=== PATIENT | female | born 1955 | race Caucasian/White ===

== ENCOUNTER 2023-11-06 20:49 | Inpatient (IN) | payer OTHER, SELFPAY ==
[2023-11-06] VITALS (16 sets, daily range): BP systolic 82–157; BP diastolic 67–128
[2023-11-06 17:01] LABS: Hematocrit 40.9 % (37.0-47.0); Hemoglobin 14.5 g/dL (12.0-16.0); Mean Corp Hgb Conc. 35.5 g/dL (33.0-37.0); Mean Corpuscular Hgb 29.8 pg (27.0-31.0); Mean Platelet Volume 9.3 fL (7.4-10.4); Platelet Count 302 10^3/uL (130-400); Red Blood Cell Count 4.87 10^6/uL (4.20-5.40); White Blood Cell Count 8.4 10^3/uL (4.8-10.8)
--- NOTE | 2023-11-06 17:01 | ED.GENMED ---
History of Present Illness
General
Chief Complaint: Cough
Source: patient and spouse
Time Seen by Provider: 11/06/23 16:48
Travel History
Have you had any contact with someone who has COVID-19?: No
Do you have any symptoms of coronavirus? Fever > 100 degrees, chills, cough, shortness of breath, sore throat, loss of taste or smell, muscle aches, or headache?: No
History of Present Illness
History of Present Illness:
This patient is a 68-year-old female presents emergency department with a history of coughing up a 'phlegmy clump' of quarter sized bloody discharge. 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 This happened around 4:30 PM tonight and she has not had any further symptoms. She denies associated fever, chills, chest pain or pressure, vomiting, anorexia, nausea, abdominal pain, chest pain, back pain, headache. Patient states she has
felt 'stuffy' for the last few days with an occasional cough today. When asked about dyspnea she is not dyspneic now but did notice that she felt a little dyspneic while climbing stairs today and walking across her garden yesterday.
Past History
Past History
ED Past Medical History: None
ED Past Surgical History: Orthopedic
Social History
Tobacco: Former smoker
Alcohol: Occasional
Personal:
Living: with family
Phy Exam
Physical Exam
Physical Exam:
GENERAL: Alert , in no apparent distress
EYE: pupils equal and reactive
NECK: Supple, no significant adenopathy.
ENT: o/p clr, mmm.
CARDIAC: Regular rate and rhythm .
LUNGS: Clear breath sounds bilaterally, no acute respiratory distress, no wheezes/rales/rhonchi
ABDOMEN: Soft, without focal tenderness, no r/g, no cvat
NEUROLOGICAL: Alert and oriented, no focal neuro deficits
SKIN: Warm and dry, skin intact.
MUSCULOSKELETAL: No edema, well perfused.
PSYCH: Normal and appropriate interaction.
Course
Orders/Labs/Results
Orders:
Orders
11/06/23 Dinner
Regular
At Your Request: Full Participation
Does patient need a safe tray?: No
11/06/23 16:37
EKG [Electrocardiogram (*1)] Urgent
Reason for Study: Shortness of Breath
11/06/23 16:49
Cardiac Monitoring- Treatment ONCE
EKG- Treatment ONCE
Pulse Ox/cont/shift [RESP] Stat
Quantity: 1
11/06/23 16:52
Complete Blood Count/No Diff Urgent
Comprehensive Metabolic Panel Urgent
D-Dimer Urgent
PTT Urgent
Prothrombin Time Urgent
11/06/23 17:20
CT Chest Pe Study Stat
Comment:
Reason For Exam: hemoptysis
11/06/23 17:48
NT-proBNP Urgent
Troponin I Urgent
11/06/23 19:31
Acid Fast Culture & Smear [Acid Fast Culture & Smear] Urgent
JONG Source: Sputum
Specimen Description:
Date Specimen was Collected: 11/07/23
Time Specimen was Collected: 00:17
CefTRIAXone [Rocephin] 1,000 mg IV NOW STA
11/06/23 19:33
Doxycycline [Vibramycin] 100 mg PO NOW STA
11/06/23 19:58
Admit/Transfer Patient As Directed
Co-Sign Provider:
Level of Care: Inpatient admission
Assign to:: Medical/Surgical
Physician / Group: negro
Diagnosis: endobronchial infection
Reason for Hospitalization: endobronchial infection
Expected length of stay greater than two midnights?: Yes
ELOS- Estimated Length of Stay in days: 2
I certify the patient meets the requirements for IP care: Yes
11/06/23 19:59
Code Status As Directed
Resuscitation Status: Full Code
11/06/23 20:03
Sputum Culture [Respiratory Culture/Gram Stain] Urgent
JONG Source: Sputum
Specimen Description:
Date Specimen was Collected: 11/07/23
Time Specimen was Collected: 00:18
11/06/23 22:00
Heparin 5,000 units SC Q12
11/06/23 22:00
PULMONARY CONSULT Routine
Consulting Provider: Rigo Jay
Was physician already notified: Yes
Activity As Directed
Activity Level: As Tolerated
Quantify Hemopytsis As Directed
Vital Signs As Directed
Frequency: Per unit guidelines
DX Deep Vein Thrombosis Video Routine
11/06/23 23:00
Betamethasone Dipropionate [Diprosone 0.05% Cream] See Dose Instructions TOPICAL BID
11/07/23 06:03
Complete Blood Count/With Diff IN AM
Comprehensive Metabolic Panel IN AM
11/07/23 08:00
Doxycycline [Vibramycin] 100 mg PO Q12
Prednisone [Deltasone] 10 mg PO DAILY
glucosamine-chondroitin [Osteo Bi-Flex] 1 tablet PO DAILY
11/07/23 20:00
CefTRIAXone [Rocephin] 1,000 mg IV Q24H
Abnormal Lab Results
11/06/23
16:52
D-Dimer 0.53 H ug/mlFEU
(0.00-0.50)
Glucose 135 H mg/dl
(70-99)
11/06/23 16:52
11/06/23 16:52
Vital Signs
Initial and Last Documented VS:
Initial Vital Signs
Temp Pulse Resp BP Pulse Ox
98.1 F 96 17 157/95 99
11/06/23 16:33 11/06/23 16:33 11/06/23 16:33 11/06/23 16:33 11/06/23 16:33
Last Documented Vital Signs
Temp Pulse Resp BP Pulse Ox
98.2 F 80 18 115/65 96
11/10/23 11:00 11/10/23 11:00 11/10/23 11:00 11/10/23 11:00 11/10/23 11:00
*Critical Care Note
Total Time (30-74mins, 75-104mins- exclusive of procedures): Not Applicable
Update Note
Update Note:
Patient presents to the Emergency Department with reported hemoptysis
Number and Complexity of Problems Addressed at the Encounter
� Chronic conditions affecting care:
� Acute Exacerbation and/or Progression of Chronic Illness:
� Differential Diagnosis includes: But not limited to intraoral bleeding, PE, bronchitis, pneumonia, AVM, etc.
Amount and/or Complexity of Data to be Reviewed and Analyzed
� I performed an independent evaluation of and my interpretation is:
EKG: Read by me, normal sinus rhythm, normal rate, normal axis, no acute ischemia
CT:SEVERE PERIPHERAL ENDOBRONCHIAL INFECTION throughout the upper lobes of both lungs with extensive peripheral tree-in-bud endobronchial opacity (possibly secondary to atypical mycobacterial infection).
2. SEVERE VARICOID BRONCHIECTASIS and CICATRICIAL ATELECTASIS in the RIGHT MIDDLE LOBE which is nearly completely collapsed.
3. SEVERE VARICOID and CYSTIC BRONCHIECTASIS in the inferior segment of the LINGULA.
4. Small hiatal hernia.
Xrays:
Laboratory Studies:generally unremarkable, D dimer elevated sl as expected given ct
Other:
� Review of other/old records reveals:
� Clinical information was obtained by an independent historian: who is bedside
� Prescriptions/Medications Considered but not given:
� Further testing considered but not performed:
Risk of Complications and/or Morbidity or Mortality of Patient Management
� Social determinants of health affecting care:
� Discussion with other providers (PCP, Hospitalists, Consultants, etc):
� Escalation of care including admission/observation vs risk of discharge considered: Case discussed with Dr. Jay from pulmonary, aware of history, physical, CT findings� Recommends sputum retrieval and consideration of
Manuel Lopezy. Case discussed with hospitalist for admission. Patient will produce a sputum here and then we will start antibiotics. She remained stable at this time
ED Attending Note
-
Portions of this chart may have been created with voice recognition software.� Occasional wrong word or��sound alike� substitutions may have occurred due to the inherent limitations of voice recognition software.
Discharge Plan
Departure
Patient Disposition: Admit
Date of Disposition: 11/06/23
Time of Disposition: 19:33
Admit to: Telemetry
Admit to doctor: kesha
Presentation/result/management discussed w/ accepting MD/DO: Hospitalist
Condition: Fair
Discharge Problem:
Bronchiectasis, Atelectasis, Hemoptysis
Interventions
Interventions:
*Risk Screen - Suicide Last Done: 11/06/23 16:55
*General Assessment Last Done: 11/06/23 16:55
*Neglect/Abuse Screening Last Done: 11/06/23 16:55
ED- Fall Risk Assessment Last Done: 11/06/23 16:56
*ED COVID-19 Vaccine History Last Done: 11/06/23 16:36
ED- Pulmonary Assessment Last Done: 11/06/23 16:55
[2023-11-06 17:15] LABS: ALT (SGPT) 25 U/L (0-35); AST (SGOT) 30 U/L (14-36); Albumin 4.7 g/dl (3.5-5.0); Alkaline Phosphatase 124 U/L (38-126); Blood Urea Nitrogen 14 mg/dl (7-17); Calcium 9.4 mg/dl (8.4-10.2); Carbon Dioxide 23 mmol/L (22-30); Chloride 107 mmol/L (98-107); Glucose 135 mg/dl (70-99); Potassium 3.8 mmol/L (3.5-5.1); Sodium 135 mmol/L (135-145); Total Bilirubin 0.4 mg/dl (0.2-1.3); Total Protein 7.9 g/dl (6.3-8.2); eGFR > 60.00
[2023-11-06 17:17] LABS: APTT 29.7 Sec (23.4-35.0); INR 1.06; PT 13.8 Sec (11.4-14.6)
[2023-11-06 17:20] LABS: D-Dimer 0.53 ug/mlFEU (0.00-0.50)
[2023-11-06 18:42] LABS: Troponin I < 0.012 ng/ml
--- NOTE | 2023-11-06 20:02 | HPS.HSE ---
Family Physician
-
Family Physician: Aida Thompson
Chief Complaint
-
hemotypsis
History of Present Illness
68-year-old female no past medical history presenting with hemoptysis. She was feeling well until this morning when she noticed some wheezing and productive cough. In the afternoon she coughed up a few quarter sized amounts of bloody sputum with
clots. She did have some shortness of breath. She did have some difficulty catching her breath. Denies any chest pain or fevers or chills. She is a former smoker.
In the past many years ago she had recurrent bronchitis/pneumonia saw surgical services coordinator at the time who performed CT scan and showed tree-in-bud abnormalities. No further workup or treatment was recommended at that time.
She has never left the country and no exposure to tuberculosis in the past.
She denies alcohol use.
Patient recently had poison edwin rash and started taking prednisone taper which she started this past Saturday. Rash is improved.
Medical History
Past Medical History
Past Medical History: Reports None
Past Surgical History: Reports None
Social History
Tobacco: Former Smoker
Alcohol: None
Drug: None
Family History
Family History: Not pertinent
Allergies / Home Medications
Allergies reflects when Allergies were last updated in [facility].
Home Medications with original date entered in [facility]
Allergy/Medication List:
Allergies
Allergy/AdvReac Type Severity Reaction Status Date / Time
codeine Allergy Unknown Unverified 11/06/23 16:34
NOT.[id number] - Not Allergy Unknown Uncoded 11/06/23 16:34
Converted 38. See Text.
NOT.[id number] - Not Allergy Unknown Uncoded 11/06/23 16:34
Converted 65. See Text.
Home Medications
Hair,Skin and Nails 1 tab PO DAILY 11/06/23
betamethasone, augmented 0.05 % topical cream 1 applic topical BID 11/06/23
glucosamine-chondroitin 250 mg-200 mg tablet (Osteo Bi-Flex) 1 tab PO DAILY 11/06/23
prednisone 10 mg tablet 10 mg PO .TAPER 11/06/23
Review of Systems
-
History Source: Patient
A 12 point ROS was completed and negative except as noted: Yes
Constitutional: Reports No Symptoms
EENT: Reports No Symptoms
Respiratory: Reports See HPI
Cardiac: Reports No Symptoms
Abdomen/GI: Reports No Symptoms
: Reports No Symptoms
Musculoskeletal: Reports No Symptoms
Skin: Reports No Symptoms
Neurological: Reports No Symptoms
Endocrine: Reports No Symptoms
Hematologic/Lymphatic: Reports No Symptoms
Psych: Reports No Symptoms
Physical Exam
Vital Signs
Vital Signs
Temp Pulse Resp BP Pulse Ox
98.1 F 70 20 134/78 96
11/06/23 16:33 11/06/23 19:45 11/06/23 19:45 11/06/23 19:30 11/06/23 19:45
Physical Exam
General: Well Developed, Well Nourished and No Apparent Distress
HEENT: NormoCephalic, Moist mucous membranes and Atraumatic
Respiratory: Clear
Cardiac: S1/S2 and Regular Rhythm; No Murmur or Rub
GI: Soft, Non Tender, Non Distended and Normal Bowel Sounds; No Organomegaly
Rectal: Deferred by Provider
Musculoskeletal: No Clubbing, No Cyanosis and No Edema
Skin: No Rash
Neuro: Nonfocal/grossly intact
Laboratory Results
-
11/06/23 16:52
11/06/23 16:52
Laboratory Results
PT 13.8 Sec (11.4-14.6) 11/06/23 16:52
INR 1.06 11/06/23 16:52
APTT 29.7 Sec (23.4-35.0) 11/06/23 16:52
Total Bilirubin 0.4 mg/dl (0.2-1.3) 11/06/23 16:52
AST 30 U/L (14-36) 11/06/23 16:52
ALT 25 U/L (0-35) 11/06/23 16:52
Alkaline Phosphatase 124 U/L (38-126) 11/06/23 16:52
Troponin I < 0.012 ng/ml 11/06/23 17:48
Data Reviewed
-
Lab Data: Labs Reviewed by me
Old Records: Reviewed
Impression/Plan
-
IMPRESSION:
PLAN:
# Severe endobronchial infection/bronchiectasis possibly atypical mycobacterial infection
-D-dimer 0.5, CT PE shows severe peripheral endobronchial infection throughout upper lobes with extensive peripheral tree-in-bud endobronchial opacity/severe varicoid bronchiectasis cicatricial atelectasis in the right middle lobe which is nearly
completely collapsed/ inferior Segment of the lingula
-Quantify hemoptysis
-Acid-fast culture pending
-Check sputum culture
-Ceftriaxone/doxycycline
-Pulmonology consulted
# Recent poison edwin rash
-Resolved
-Continue topical steroid taper 10 mg for 2 more days
Former smoker
Full code
DVT prophylaxis�heparin
Regular diet
[2023-11-06] MEDS: VIBRAMYCIN 100 MG PO (20:18)
[2023-11-06] MEDS: ROCEPHIN 1000 MG IV (20:18)
[2023-11-07] MEDS: HEPARIN SC (01:08)
[2023-11-07 06:28] LABS: % Basophils 0.4 % (0-2); % Eosinophils 1.1 % (0-6); % Immature Granulocytes 0.4 % (0-0.5); % Monocytes 9.4 % (1.7-9.3); % Neutrophils 45.7 % (42.2-75.2); Absolute Eosinophils 0.1 10^3/uL (0-0.7); Absolute Lymphocytes 4.2 10^3/uL (1.2-3.4); Absolute Monocytes 0.9 10^3/uL (0.1-0.6); Absolute Neutrophils 4.5 10^3/uL (1.4-6.5); Hematocrit 38.3 % (37.0-47.0); Hemoglobin 13.4 g/dL (12.0-16.0); Mean Corpuscular Hgb 29.2 pg (27.0-31.0); Mean Corpuscular Volume 83.4 fL (81.0-99.0); Mean Platelet Volume 9.2 fL (7.4-10.4); Nucleated Red Blood Cells % 0 %; Platelet Count 260 10^3/uL (130-400); Red Blood Cell Count 4.59 10^6/uL (4.20-5.40); White Blood Cell Count 9.9 10^3/uL (4.8-10.8)
[2023-11-07 06:51] LABS: ALT (SGPT) 22 U/L (0-35); AST (SGOT) 27 U/L (14-36); Albumin 4.1 g/dl (3.5-5.0); Alkaline Phosphatase 75 U/L (38-126); Blood Urea Nitrogen 13 mg/dl (7-17); Calcium 9.2 mg/dl (8.4-10.2); Carbon Dioxide 25 mmol/L (22-30); Chloride 105 mmol/L (98-107); Glucose 90 mg/dl (70-99); Potassium 3.8 mmol/L (3.5-5.1); Sodium 135 mmol/L (135-145); Total Bilirubin 0.6 mg/dl (0.2-1.3); Total Protein 6.8 g/dl (6.3-8.2); eGFR > 60.00
--- NOTE | 2023-11-07 08:10 | W.PN.HOSP.TC ---
Today's Communication/Plan
-
Continue antibiotics. Pulmonary evaluation.
Assessment / Plan
Assessment / Plan
Physical exam:
General: Acutely ill. Nontoxic
HEENT: Normocephalic, Atraumatic and Moist Mucous Membranes
Respiratory: Clear to Auscultation; Negative Wheezes, Rales or Rhonchi
Cardiac: Regular Rhythm and S1/S2
GI: Soft, Nontender and Nondistended
Musculoskeletal: No Clubbing, No Cyanosis and No Edema
Neuro: Awake, Alert and Oriented
Psych: Calm
A/P:
# Severe endobronchial infection/bronchiectasis possibly atypical mycobacterial infection
-D-dimer 0.5, CT PE shows severe peripheral endobronchial infection throughout upper lobes with extensive peripheral tree-in-bud endobronchial opacity/severe varicoid bronchiectasis cicatricial atelectasis in the right middle lobe which is nearly
completely collapsed/ inferior Segment of the lingula
-Quantify hemoptysis
-Acid-fast culture pending
-Check sputum culture
-Ceftriaxone/azithromycin (patient does not tolerate doxycycline)
-Pulmonology consulted and pending evaluation
# Recent poison edwin rash
-Resolved
-Continue topical steroid taper 10 mg for 2 more days
Former smoker
Full code
DVT prophylaxis�heparin
Regular diet
Anticipated Discharge: 24 - 48 hours
Subjective/Interval History
-
Date of Service: November 07, 2023
Patient still having hemoptysis although small quantity. Cough with sputum production. Afebrile. No chest pain or shortness of breath.
Objective Data
-
Labs:
Laboratory Results
11/07/23
06:03
WBC 9.9
Hgb 13.4
Hct 38.3
Plt Count 260
Sodium 135
Potassium 3.8
Chloride 105
Carbon Dioxide 25
BUN 13
Creatinine 0.7
Glucose 90
Calcium 9.2
Total Bilirubin 0.6
AST 27
ALT 22
Alkaline Phosphatase 75
Vital Signs:
Vital Signs
Temp Pulse Resp BP Pulse Ox
98.1 F 65 20 127/71 98
11/06/23 16:33 11/06/23 21:15 11/06/23 21:15 11/06/23 21:00 11/06/23 21:15
[2023-11-07 08:30] VITALS: BP 121/73
[2023-11-07] MEDS: DELTASONE 10 MG PO (08:33)
[2023-11-07] MEDS: HEPARIN 5000 UNITS SC ×2 (08:35→21:06)
--- NOTE | 2023-11-07 09:38 | CON.PUL ---
Consultation
Consultation Request
Date/Time Consultation Requested: 11/06/20232199
Date/Time Consultation Performed: 11/07/2023939
Requesting Provider: Dr. Velasquez
Performing Provider: Dr. Vaz
Reason for Consultation: Hemoptysis
Medical History
-
Chief Complaint: Coughing up blood
History of Present Illness:
68-year-old female with no known past medical history presents with coughing up blood. Patient says that she was coughing up quarter size blood clots. Patient afebrile in the ER to 98.1 �F, pulse rate 96, respiratory rate 17, BP 157/95 and
saturating 99% on room air. Labs showed normal INR of 1.06, and insignificant labs otherwise. CT of the chest was performed showing tree-in-bud nodular opacities predominantly in the upper lobes and trina-lateral RLL with extensive bronchiectasis
in the lingula and right middle lobe with volume loss. Respiratory culture was collected with AFB and bacterial culture. Patient given ceftriaxone and doxycycline in the ER and admitted to the hospitalist service. Patient continued on antibiotics
with azithromycin and ceftriaxone. Patient had apparently been recently exposed to poison edwin and was taking prednisone for this, hence 10 mg daily was continued. Pulmonary now consulted for additional management/recommendations.
When I saw the pt she was in bed in [facility]. She has not coughed up blood since early this AM. She began coughing up quarter-sized clotted red blood yesterday while she was driving. It has never happened before. She denies SOB, chest pain, she is
not on blood thinners, she denies GUADARRAMA, abd pain, N/V/f/c. She denies any recent travel, denies have exposure to anyone with TB, she has never been incarcerated, never been to [place] or other TB-endemic country. She says she has a greenhouse at home,
but otherwise is retired. 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 She is a former tobacco smoker, quit in 2019, smoked off and on for about 20 years, smoking
2-3 cigarettes a day, sometimes less. She had covid-19 in 2022. She has a Hx of pneumonia - last episode few years ago.
PMHx: Hx of COVID-19 (March 2023), Hx of pneumonia, former tobacco smoker
PSHx: Tonsillectomy, oophorectomy, wisdom teeth removal, right knee replacement, right shoulder surgery
Past Medical History
Past Medical History: Other (Above as per HPI)
Past Surgical History: Other (Above as per HPI)
Social History
Tobacco: Former Smoker (Quit 2019 - smoked few cigarettes a day off and on for ~20 years)
Alcohol: None
Drug: None
Environmental Exposures: Has a greenhouse at home
Family History
Family History: Reviewed & Not Pertinent
Allergies / Home Medications
Allergies
Allergy/AdvReac Type Severity Reaction Status Date / Time
codeine Allergy Unknown Verified 11/06/23 22:09
doxycycline Allergy Nausea / Verified 11/07/23 08:31
Vomiting
Home Medications
�Medication �Instructions �Recorded �Confirmed �Last Taken �Type
Hair,Skin and Nails 1 tab PO DAILY 11/06/23 11/06/23 3 Days Ago History
~11/03/23
betamethasone, augmented 0.05 % 1 applic topical BID 11/06/23 11/06/23 11/06/23 History
topical cream
glucosamine-chondroitin 250 mg-200 1 tab PO DAILY 11/06/23 11/06/23 3 Days Ago History
mg tablet (Osteo Bi-Flex) ~11/03/23
prednisone 10 mg tablet 10 mg PO .TAPER 11/06/23 11/06/23 11/06/23 History
20 mg
Review of Systems
-
History Source: Patient
All other systems: Negative unless noted
Vitals / Labs / Diagnostic Testing
Vital Signs
Temp Pulse Resp BP Pulse Ox
98 F 70 17 132/72 98
11/07/23 12:14 11/07/23 12:14 11/07/23 08:30 11/07/23 12:14 11/07/23 12:14
Lab Data
11/07/23 06:03
11/07/23 06:03
Laboratory Results
11/06/23
16:52
PT 13.8
INR 1.06
APTT 29.7
Microbiology
11/07/23 00:43 Sputum Gram Stain - Preliminary
Diagnostic Testing:
Physical Exam
-
HEENT: Normocephalic and Anicteric
Cardiovascular: S1/S2 and Peripheral Edema (negative)
Respiratory: Clear, Wheeze (negative), Rales (negative), Rhonchi (negative) and Non-Labored Respirations
GI: Soft, Non Distended, Non Tender and Normal Bowel Sounds
Neurology: Awake and Alert
Skin: Warm and Dry
General: Comfortable and Sweats (negative)
Assessment
-
Assessment: 68-year-old female with no known past medical history presents with coughing up blood. Patient says that she was coughing up quarter size blood clots. Patient afebrile in the ER to 98.1 �F, pulse rate 96, respiratory rate 17, BP 157/95
and saturating 99% on room air. Labs showed normal INR of 1.06, and insignificant labs otherwise. CT of the chest was performed showing tree-in-bud nodular opacities predominantly in the upper lobes and trina-lateral RLL with extensive
bronchiectasis in the lingula and right middle lobe with volume loss. Respiratory culture was collected with AFB and bacterial culture. Patient given ceftriaxone and doxycycline in the ER and admitted to the hospitalist service. Patient continued
on antibiotics with azithromycin and ceftriaxone. Patient had apparently been recently exposed to poison edwin and was taking prednisone for this, hence 10 mg daily was continued. Pulmonary now consulted for additional management/recommendations.
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
Impression:
#Non�life-threatening hemoptysis - likely due to undiagnosed MAC
#Nodular/bronchiectasis in RML/lingular suspicious for MAC lung disease
#Tree-in-bud nodular opacities in b/l upper lobes and trina-lateral RLL, suspicious for CAP
#Contact dermatitis due to poison ewdin (on RUE and RLE) - this is improving
Plan:
- Follow up sputum AFB to assess for NTM; to help aide in diagnosis, I will arrange for bronch with BAL to send off microbiological analysis
- I reviewed the risks and benefits of a bronchoscopy and she has agreed to this procedure. Risks include but are not limited to bleeding, infection, pneumothorax. Benefit is aiding in diagnosis which will lead to treatment and ultimately help
resolve her hemoptysis
- Continue ceftriaxone and azithro, would plan for 7 days rocephin for now and 5 days zithromax
- Would check blood Cx as well and urine antigens for legionella and Strep PNA
- Keep disposable cup at bedside to quantify hemoptysis
- Continue prednisone taper per primary team for recently exposed poison edwin
- Maintain SpO2 >90-94% with supplemental O2 as needed
- Incentive spirometer encouraged
- Replete electrolytes with K>4, Mg>2
- Maintain euglycemia with goal BG >100 and <180
- prn nebulized bronchodilators
- DVT ppx: HSQ
Pulmonary service will continue to follow along.
Total time spent today was 55 minutes for this encounter. Time includes reviewing laboratory test/imaging results, reviewing pertinent medical records, obtaining and reviewing medical history, performing an appropriate exam, ordering medications,
tests and procedures. Time also includes documentation of this encounter, coordinating patient care and communicating with other healthcare professionals. Total time does not include separately billed tests performed on this date of service.
Data:
CTA Chest 11-06-2023:
1. SEVERE PERIPHERAL ENDOBRONCHIAL INFECTION throughout the upper lobes of both lungs with extensive peripheral tree-in-bud endobronchial opacity (possibly secondary to atypical mycobacterial infection).
2. SEVERE VARICOID BRONCHIECTASIS and CICATRICIAL ATELECTASIS in the RIGHT MIDDLE LOBE which is nearly completely collapsed.
3. SEVERE VARICOID and CYSTIC BRONCHIECTASIS in the inferior segment of the LINGULA.
4. Small hiatal hernia.
[2023-11-07] MEDS: ZITHROMAX 500 MG PO (10:51)
[2023-11-07 12:14] VITALS: BP 132/72
[2023-11-07] MEDS: ROCEPHIN 1000 MG IV (21:05)
[2023-11-07] MEDS: STERILE WATER FOR INJECTION 10 ML IV (21:05)
[2023-11-07 21:17] VITALS: BP 135/79; BMI 31.6
--- NOTE | 2023-11-07 22:00 | PTCARENOTE ---
Patient received in bed from ED @ 2114. Patient ambulated from stretcher to bed. Patient offers no complaints at this time. Oriented to room and call cavazos.
[2023-11-07 23:25] VITALS: BP 127/77
[2023-11-08 06:57] LABS: % Basophils 0.2 % (0-2); % Eosinophils 1.3 % (0-6); % Immature Granulocytes 0.5 % (0-0.5); % Lymphocytes 42.5 % (20.5-51.1); % Neutrophils 45.5 % (42.2-75.2); Absolute Eosinophils 0.1 10^3/uL (0-0.7); Absolute Lymphocytes 3.5 10^3/uL (1.2-3.4); Absolute Monocytes 0.8 10^3/uL (0.1-0.6); Absolute Neutrophils 3.7 10^3/uL (1.4-6.5); Hematocrit 39.8 % (37.0-47.0); Hemoglobin 13.8 g/dL (12.0-16.0); Mean Corp Hgb Conc. 34.7 g/dL (33.0-37.0); Mean Corpuscular Hgb 29.4 pg (27.0-31.0); Mean Corpuscular Volume 84.9 fL (81.0-99.0); Mean Platelet Volume 9.1 fL (7.4-10.4); Nucleated Red Blood Cells % 0 %; Platelet Count 242 10^3/uL (130-400); Red Blood Cell Count 4.69 10^6/uL (4.20-5.40); Red Cell Dist. Width 13.2 % (11.5-14.5); White Blood Cell Count 8.2 10^3/uL (4.8-10.8)
[2023-11-08 07:19] LABS: Blood Urea Nitrogen 14 mg/dl (7-17); Calcium 9.3 mg/dl (8.4-10.2); Carbon Dioxide 29 mmol/L (22-30); Chloride 104 mmol/L (98-107); Estimated Creatinine Clearance 66 ml/min; Glucose 92 mg/dl (70-99); Potassium 4.2 mmol/L (3.5-5.1); Sodium 136 mmol/L (135-145); eGFR > 60.00
--- NOTE | 2023-11-08 07:20 | W.PN.HOSP.TC ---
Today's Communication/Plan
-
Bronchoscopy today. IV antibiotics.
Assessment / Plan
Assessment / Plan
Physical exam:
General: Acutely ill. Nontoxic
HEENT: Normocephalic, Atraumatic and Moist Mucous Membranes
Respiratory: Clear to Auscultation; Negative Wheezes, Rales or Rhonchi
Cardiac: Regular Rhythm and S1/S2
GI: Soft, Nontender and Nondistended
Musculoskeletal: No Clubbing, No Cyanosis and No Edema
Neuro: Awake, Alert and Oriented
Psych: Calm
A/P:
# Severe endobronchial infection/bronchiectasis and likely atypical mycobacterial infection (MAC)
-D-dimer 0.5, CT PE shows severe peripheral endobronchial infection throughout upper lobes with extensive peripheral tree-in-bud endobronchial opacity/severe varicoid bronchiectasis cicatricial atelectasis in the right middle lobe which is nearly
completely collapsed/ inferior Segment of the lingula
-Quantify hemoptysis
-Acid-fast culture pending
-Checking sputum culture
-Strep and Legionella negative
-Blood cultures no growth but pending
-Ceftriaxone/azithromycin (patient does not tolerate doxycycline)
-Pulmonology consulted and appreciated their input
-Plan for bronchoscopy today
-PT eval
# Recent poison edwin rash
-Resolved
-Continue topical steroid taper 10 mg finishing today
Former smoker
Full code
DVT prophylaxis�heparin
N.p.o. for procedure and after that can go back to regular diet.
Anticipated Discharge: 24 - 48 hours
Subjective/Interval History
-
Date of Service: November 08, 2023
Patient is coughing less and also no hemoptysis today. Remains afebrile.
Objective Data
-
Labs:
Laboratory Results
11/08/23
06:43
WBC 8.2
Hgb 13.8
Hct 39.8
Plt Count 242
Sodium 136
Potassium 4.2
Chloride 104
Carbon Dioxide 29
BUN 14
Creatinine 0.7
Glucose 92
Calcium 9.3
Vital Signs:
Vital Signs
Temp Pulse Resp BP Pulse Ox
98.2 F 64 18 127/77 98
11/07/23 23:25 11/07/23 23:25 11/07/23 23:25 11/07/23 23:25 11/07/23 23:25
Review of Systems
-
All other systems: Reviewed and negative
[2023-11-08 07:25] VITALS: BP 125/76
--- NOTE | 2023-11-08 09:01 | W.PN.PUL3 ---
Today's Communication / Plan
-
NPO for bronch today - send off AFB to Dx MAC; will also send bacterial Cx, fungus Cx and cell count with differential
Maintain SpO2>90-94%
Up OOB as tolerated
If pt awake and alert post-bronchoscopy and can ambulate without SOB and SpO2 >95% on room air, then she can go home assuming she has no additional complaints
Because she will receive anesthesia today, she will need to be picked up and cannot drive home herself or make any other serious life decisions.
Pulmonary service will continue to follow along while she remains inpatient, and I will arrange for outpatient follow up. Depending on the results of today, she should also see ID post-discharge.
Assessment
-
Assessment: 68-year-old female with no known past medical history presents with coughing up blood. Patient says that she was coughing up quarter size blood clots. Patient afebrile in the ER to 98.1 �F, pulse rate 96, respiratory rate 17, BP 157/95
and saturating 99% on room air. Labs showed normal INR of 1.06, and insignificant labs otherwise. CT of the chest was performed showing tree-in-bud nodular opacities predominantly in the upper lobes and trina-lateral RLL with extensive
bronchiectasis in the lingula and right middle lobe with volume loss. Respiratory culture was collected with AFB and bacterial culture. Patient given ceftriaxone and doxycycline in the ER and admitted to the hospitalist service. Patient continued
on antibiotics with azithromycin and ceftriaxone. Patient had apparently been recently exposed to poison edwin and was taking prednisone for this, hence 10 mg daily was continued. Pulmonary now consulted for additional management/recommendations.
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
Impression:
#Non�life-threatening hemoptysis - likely due to undiagnosed MAC
#Nodular/bronchiectasis in RML/lingular suspicious for MAC lung disease
#Tree-in-bud nodular opacities in b/l upper lobes and trina-lateral RLL, suspicious for CAP
#Contact dermatitis due to poison edwin (on RUE and RLE) - this has markedly improved
Plan:
- Follow up sputum AFB to assess for NTM; to help aide in diagnosis, she is going to undergo bronch with BAL today to send off microbiological analysis --> she is NPO for bronch with BAL today
- I reviewed the risks and benefits of a bronchoscopy and she has agreed to this procedure. Risks include but are not limited to bleeding, infection, pneumothorax. Benefit is aiding in diagnosis which will lead to treatment and ultimately help
resolve her hemoptysis
- Continue ceftriaxone and azithro, would plan for 7 days rocephin for now and 5 days zithromax
- Follow up blood Cx (drawn 11/06); negative urine antigens for legionella and Strep PNA
- Keep disposable cup at bedside to quantify hemoptysis
- s/p prednisone taper per primary team for recently exposed poison edwin
- Maintain SpO2 >90-94% with supplemental O2 as needed
- Incentive spirometer encouraged
- Replete electrolytes with K>4, Mg>2
- Maintain euglycemia with goal BG >100 and <180
- prn nebulized bronchodilators
- DVT ppx: HSQ
Pulmonary service will continue to follow along.
Total time spent today was 35 minutes for this encounter. Time includes reviewing laboratory test/imaging results, reviewing pertinent medical records, obtaining and reviewing medical history, performing an appropriate exam, ordering medications,
tests and procedures. Time also includes documentation of this encounter, coordinating patient care and communicating with other healthcare professionals. Total time does not include separately billed tests performed on this date of service.
Data:
CTA Chest 11-06-2023:
1. SEVERE PERIPHERAL ENDOBRONCHIAL INFECTION throughout the upper lobes of both lungs with extensive peripheral tree-in-bud endobronchial opacity (possibly secondary to atypical mycobacterial infection).
2. SEVERE VARICOID BRONCHIECTASIS and CICATRICIAL ATELECTASIS in the RIGHT MIDDLE LOBE which is nearly completely collapsed.
3. SEVERE VARICOID and CYSTIC BRONCHIECTASIS in the inferior segment of the LINGULA.
4. Small hiatal hernia.
Subjective Data
-
Date of Service:
Date of Service: November 08, 2023
Chief Complaint: Pulmonary Follow Up
Subjective:
Pt seen this AM. Awaiting bronch with BAL today. Sputum AFB from yesterday still showing NGTD. She feels similar to yesterday. No SOB or chest pain. No abd pain, N/V/f/c.
Review of Systems
General: Other (negative unless mentioned above)
Objective Data
Data Reviewed
Vital Signs / I&O / Oxygen:
Vital Signs
Temp Pulse Resp BP Pulse Ox
98.2 F 64 18 125/76 97
11/08/23 07:25 11/08/23 07:25 11/08/23 07:25 11/08/23 07:25 11/08/23 07:25
SaO2 97
Physical Exam
General: Respiratory Distress (negative) and Comfortable
HEENT: Normocephalic and Anicteric
Cardiovascular: S1-S2 and Peripheral Edema (negative)
Respiratory: Clear, Wheeze (negative), Crackles (negative), Rhonchi (negative) and Non-Labored Respirations
GI: Soft, Non Distended, Non Tender and Normal Bowel Sounds
Neurology: AO x 3
Skin: Warm and Dry
Labs/Micro/Reports
Lab Data
11/08/23 06:43
11/08/23 06:43
Microbiology
11/07/23 00:43 Sputum Respiratory Culture - Preliminary
Usual Respiratory Anu
11/07/23 00:43 Sputum Gram Stain - Preliminary
11/07/23 17:56 Urine Legionella Urinary Antigen - Final
Negative for Legionella pneumophila Serogroup 1 antigen.
A negative result does not rule out the possiblity of
Legionella infection due to other serogroups or species of
Legionella. Clinical correlation is recommended.
11/07/23 17:56 Urine Streptococcus pneumoniae Antigen (M - Final
Negative for Streptococcus pneumoniae antigen.
A negative result does not exclude infection with
Streptococcus pneumoniae. Clinical correlation is
recommended.
[2023-11-08] MEDS: ZITHROMAX 500 MG PO (09:45)
[2023-11-08] MEDS: HEPARIN 5000 UNITS SC ×2 (09:45→21:25)
[2023-11-08] MEDS: DELTASONE 10 MG PO (09:45)
[2023-11-08] MEDS: TYLENOL 650 MG PO (12:26)
[2023-11-08 15:54] VITALS: BP 103/61
--- NOTE | 2023-11-08 16:00 | PTCARENOTE ---
[facility] AAOx[facility]. VSS. Pox 100% on RA. at bedside. Will monitor.
[2023-11-08 17:32] LABS: Brochalveolar Lavage Character Turbid (Clear); Brochalveolar Lavage Color Pink; Brochalveolar Lavage Volume 20 ml
[2023-11-08 17:55] LABS: Brochalveolar Lavage WBC 1584000 cells/ml
[2023-11-08 18:03] LABS: BAL Macrophages 5.5 %; BAL Neutrophils 90.5 %
[2023-11-08] MEDS: STERILE WATER FOR INJECTION 10 ML IV (21:27)
[2023-11-08] MEDS: ROCEPHIN 1000 MG IV (21:27)
[2023-11-08] MEDS: FLUSH (NSS) 1 FLUSH IV (21:29)
[2023-11-08 23:12] VITALS: BP 119/63
[2023-11-09 08:07] VITALS: BP 110/65
[2023-11-09 08:32] LABS: Blood Urea Nitrogen 14 mg/dl (7-17); Calcium 9.3 mg/dl (8.4-10.2); Carbon Dioxide 25 mmol/L (22-30); Chloride 103 mmol/L (98-107); Estimated Creatinine Clearance 77 ml/min; Glucose 153 mg/dl (70-99); Potassium 3.9 mmol/L (3.5-5.1); Sodium 134 mmol/L (135-145); eGFR > 60.00
[2023-11-09 08:34] LABS: % Basophils 0.1 % (0-2); % Immature Granulocytes 0.4 % (0-0.5); % Lymphocytes 11.7 % (20.5-51.1); % Monocytes 4.9 % (1.7-9.3); % Neutrophils 82.9 % (42.2-75.2); Absolute Immature Granulocytes 0.1 10^3/uL (0-0.05); Absolute Lymphocytes 1.5 10^3/uL (1.2-3.4); Absolute Monocytes 0.6 10^3/uL (0.1-0.6); Absolute Neutrophils 10.8 10^3/uL (1.4-6.5); Hematocrit 41.1 % (37.0-47.0); Hemoglobin 13.9 g/dL (12.0-16.0); Mean Corp Hgb Conc. 33.8 g/dL (33.0-37.0); Mean Corpuscular Hgb 29.3 pg (27.0-31.0); Mean Corpuscular Volume 86.5 fL (81.0-99.0); Mean Platelet Volume 9.3 fL (7.4-10.4); Nucleated Red Blood Cells % 0 %; Platelet Count 269 10^3/uL (130-400); Red Blood Cell Count 4.75 10^6/uL (4.20-5.40); Red Cell Dist. Width 12.7 % (11.5-14.5)
[2023-11-09] MEDS: HEPARIN 5000 UNITS SC ×2 (09:16→21:27)
[2023-11-09] MEDS: ZITHROMAX 500 MG PO (09:16)
--- NOTE | 2023-11-09 11:39 | W.PN.HOSP.TC ---
Today's Communication/Plan
-
see bold
Assessment / Plan
Assessment / Plan
Gen: NAD, AAOx3.
Eyes: EOMI, PERRLA, no scleral icterus.
Neck: supple.
CV: RRR, +S1/S2, no m/r/g.
Resp: CTAB, no rales, wheezes, or rhonchi.
Abd: +BS, soft, NT, ND
Skin: No rashes.
Neuro: CN 2-12 intact, non-focal.
Psych: Normal mood and affect.
11/07/23 00:43 Sputum Respiratory Culture - Final
Usual Respiratory Cassandra
11/07/23 00:43 Sputum Gram Stain - Final
11/08/23 14:33 Bronch Right Middle Lobe Respiratory Culture - Preliminary
Usual Respiratory Cassandra
11/08/23 14:33 Bronch Right Middle Lobe Gram Stain - Preliminary
11/07/23 00:43 Sputum Acid Fast Bacilli Smear - Preliminary
11/07/23 00:43 Sputum Acid Fast Bacilli Culture - Preliminary
11/07/23 17:56 Blood/Venous Blood Culture - Preliminary
No Growth in 24 hours- Final report to follow
11/07/23 17:56 Urine Legionella Urinary Antigen - Final
Negative for Legionella pneumophila Serogroup 1 antigen.
A negative result does not rule out the possiblity of
Legionella infection due to other serogroups or species of
Legionella. Clinical correlation is recommended.
11/07/23 17:56 Urine Streptococcus pneumoniae Antigen (M - Final
Negative for Streptococcus pneumoniae antigen.
A negative result does not exclude infection with
Streptococcus pneumoniae. Clinical correlation is
recommended.
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
-CTA chest: severe peripheral endobronchial infection throughout upper lobes with extensive peripheral tree-in-bud endobronchial opacity/severe varicoid bronchiectasis cicatricial atelectasis in the right middle lobe which is nearly completely
collapsed/ inferior Segment of the lingula
-s/p bronch 11/08/23: Exudate was found in the superior lingular segment of the left upper lobe (B4). Notable, mucopurulent, thick secretions were found in the right middle lobe. Blood was present in the bronchus intermedius. The bleeding site was
not identified. Bronchoalveolar lavage was performed. Therapeutic suctioning was performed.
-Culture data above. Sputum culture usual respiratory cassandra. Urine strep and Legionella antigens negative. Blood culture no growth to date. Follow bronch cultuures/cytology.
-Ceftriaxone/azithromycin (patient does not tolerate doxycycline)
-saturating well on RA
-mild leukocytosis, afebrile
-Pulmonology following
Other problems:
Obesity due to excess calories
Recent poison edwin rash, resolved
Former smoker
FULL/heparin
Anticipated Discharge: Within 24 hours
Subjective/Interval History
-
Date of Service: November 09, 2023
Pt states she feels she can't take a deep breath. Having dry cough (no hemoptysis).
Objective Data
-
Labs:
Laboratory Results
11/09/23
07:58
WBC 13.0 H
Hgb 13.9
Hct 41.1
Plt Count 269
Sodium 134 L
Potassium 3.9
Chloride 103
Carbon Dioxide 25
BUN 14
Creatinine 0.6
Glucose 153 H
Calcium 9.3
Vital Signs:
Vital Signs
Temp Pulse Resp BP Pulse Ox
98.1 F 82 14 110/65 98
11/09/23 08:07 11/09/23 08:07 11/09/23 08:07 11/09/23 08:07 11/09/23 08:07
I&O
11/08/23 11/09/23 11/10/23
06:59 06:59 06:59
Intake Total 360 / 360 240 / 240
Balance 360 / 360 240 / 240
[2023-11-09] MEDS: DIFLUCAN 200 MG PO (12:37)
--- NOTE | 2023-11-09 13:35 | CM ---
CM following re: discharge planning.
Reviewed pt's chart, met with pt.
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
Pt reports she lives with spouse in a ranch style house, 6 steps up, has supportive son. 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 No DME, VN or SNF history.
PCP: Aida rivera
Pharmacy: [facility]
D/C plan: home with anticipated no needs. Spouse to transport at discharge.
CM will follow with discharge plan updates as hospitalization progresses
[2023-11-09 15:02] VITALS: BP 122/68
--- NOTE | 2023-11-09 15:15 | W.PN.PUL3 ---
Today's Communication / Plan
-
Atbs
Dispo
Follow bronch cxs at [facility]
Assessment
-
Assessment: 68-year-old female with no known past medical history presents with coughing up blood. Patient says that she was coughing up quarter size blood clots. Patient afebrile in the ER to 98.1 �F, pulse rate 96, respiratory rate 17, BP 157/95
and saturating 99% on room air. Labs showed normal INR of 1.06, and insignificant labs otherwise. CT of the chest was performed showing tree-in-bud nodular opacities predominantly in the upper lobes and trina-lateral RLL with extensive
bronchiectasis in the lingula and right middle lobe with volume loss. Respiratory culture was collected with AFB and bacterial culture. Patient given ceftriaxone and doxycycline in the ER and admitted to the hospitalist service. Patient continued
on antibiotics with azithromycin and ceftriaxone. Patient had apparently been recently exposed to poison edwin and was taking prednisone for this, hence 10 mg daily was continued. Pulmonary now consulted for additional management/recommendations.
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
Impression:
#Non�life-threatening hemoptysis - likely due to undiagnosed MAC
#Nodular/bronchiectasis in RML/lingular suspicious for MAC lung disease
#Tree-in-bud nodular opacities in b/l upper lobes and trina-lateral RLL, suspicious for CAP
#Contact dermatitis due to poison edwin (on RUE and RLE) - this has markedly improved
Plan:
- Follow bronchoscopy microbiology results
- Continue ceftriaxone and azithro, would plan for 7 days cephalosporin and 5 days po zithromax
- Follow up blood Cx (drawn 11/06); negative urine antigens for legionella and Strep PNA
- Keep disposable cup at bedside to quantify hemoptysis: no hemoptysis since yesterday am
- s/p prednisone taper per primary team for recently exposed poison edwin
- Maintain SpO2 >90-94% with supplemental O2 as needed
- Incentive spirometer encouraged
- Replete electrolytes with K>4, Mg>2
- Maintain euglycemia with goal BG >100 and <180
- prn nebulized bronchodilators
- DVT ppx: HSQ
Disposition: resp rosen stable for d/c today or tomorrow, patient aware, TT Dr Gayle
Patient will follow at [facility]
All above d/w patient in presence of PT
Data:
CTA Chest 11-06-2023:
1. SEVERE PERIPHERAL ENDOBRONCHIAL INFECTION throughout the upper lobes of both lungs with extensive peripheral tree-in-bud endobronchial opacity (possibly secondary to atypical mycobacterial infection).
2. SEVERE VARICOID BRONCHIECTASIS and CICATRICIAL ATELECTASIS in the RIGHT MIDDLE LOBE which is nearly completely collapsed.
3. SEVERE VARICOID and CYSTIC BRONCHIECTASIS in the inferior segment of the LINGULA.
4. Small hiatal hernia.
Subjective Data
-
Date of Service:
Date of Service: November 09, 2023
Chief Complaint: Pulmonary Follow Up
Subjective:
No major events reported overnight
Remains afebrile, respiratory and hemodynamically stable
No more hemoptysis since yesterday morning
Lives with , will like to go home today or tomorrow
Review of Systems
General: Fever (n), Sweats (n), Chills and Satisfactory Appetite
HEENT: Epistaxis (n) and Dysphagia (n)
Cardiopulmonary: Dyspnea, Cough (improved), Sputum Production (trace clear), Wheezing (n) and Hemoptysis (n)
GI: Abdominal Pain (n), Nausea (n) and Vomiting (n)
Neuro: Weakness (n)
Objective Data
Data Reviewed
Vital Signs / I&O / Oxygen:
Vital Signs
Temp Pulse Resp BP Pulse Ox
98.1 F 82 14 110/65 98
11/09/23 08:07 11/09/23 08:07 11/09/23 08:07 11/09/23 08:07 11/09/23 08:07
Intake and Output
11/08/23 11/09/23 11/10/23
06:59 06:59 06:59
Intake Total 360 / 360 240 / 240
Balance 360 / 360 240 / 240
SaO2 98
Physical Exam
General: Comfortable
HEENT: Normocephalic, Anicteric and Moist Mucous Membranes
Cardiovascular: S1-S2, Regular Rhythm, Murmur (n), Peripheral Edema (negative) and Calf Tenderness (n)
Respiratory: Clear, Wheeze (negative), Crackles (negative), Rhonchi (negative), Non-Labored Respirations and Stridor (n)
GI: Soft, Non Distended, Non Tender and Normal Bowel Sounds
Neurology: Awake, AO x 3 and No Motor Deficits
Skin: Warm and Dry
Labs/Micro/Reports
Lab Data
11/09/23 07:58
11/09/23 07:58
Microbiology
11/07/23 00:43 Sputum Respiratory Culture - Final
Usual Respiratory Anu
11/07/23 00:43 Sputum Gram Stain - Final
11/08/23 14:33 Bronch Right Middle Lobe Respiratory Culture - Preliminary
Usual Respiratory Anu
11/08/23 14:33 Bronch Right Middle Lobe Gram Stain - Preliminary
11/07/23 00:43 Sputum Acid Fast Bacilli Smear - Preliminary
11/07/23 00:43 Sputum Acid Fast Bacilli Culture - Preliminary
11/07/23 17:56 Blood/Venous Blood Culture - Preliminary
No Growth in 24 hours- Final report to follow
11/07/23 17:56 Urine Legionella Urinary Antigen - Final
Negative for Legionella pneumophila Serogroup 1 antigen.
A negative result does not rule out the possiblity of
Legionella infection due to other serogroups or species of
Legionella. Clinical correlation is recommended.
11/07/23 17:56 Urine Streptococcus pneumoniae Antigen (M - Final
Negative for Streptococcus pneumoniae antigen.
A negative result does not exclude infection with
Streptococcus pneumoniae. Clinical correlation is
recommended.
[2023-11-09 15:43] VITALS: BP 115/64; PULSE 70; O2SAT 99
--- NOTE | 2023-11-09 15:52 | PTOTSP ---
PATIENT ABLE TO MOBILIZE INDEPENDENTLY ON LEVEL SURFACES WELL ELEVATIONS WITH ROOM AIR SPO2-96-99%. DR. POWER AND RN MADE AWARE. PATIENT REQUIRES NO FURTHER ACUTE CARE SKILLED P.T. AT THIS TIME. WILL DISCHARGE FROM P.T.
[2023-11-09] MEDS: ROCEPHIN 1000 MG IV (21:30)
[2023-11-09] MEDS: STERILE WATER FOR INJECTION 10 ML IV (21:30)
[2023-11-09 23:50] VITALS: BP 121/69
[2023-11-10] MEDS: TYLENOL 650 MG PO (06:02)
[2023-11-10 07:02] VITALS: BP 109/62
[2023-11-10] MEDS: ZITHROMAX 500 MG PO (08:55)
[2023-11-10] MEDS: HEPARIN 5000 UNITS SC (08:55)
--- NOTE | 2023-11-10 10:47 | W.PN.HOSP.TC ---
Today's Communication/Plan
-
d/c
Assessment / Plan
Assessment / Plan
Gen: NAD, AAOx3.
Eyes: EOMI, PERRLA, no scleral icterus.
Neck: supple.
CV: remains RRR, +S1/S2, no m/r/g.
Resp: remains CTAB, no rales, wheezes, or rhonchi.
Abd: +BS, soft, NT, ND
Skin: No rashes.
Neuro: remains CN 2-12 intact, non-focal.
Psych: Normal mood and affect.
11/08/23 14:33 Bronch Right Middle Lobe Respiratory Culture - Final
Usual Respiratory Cassandra
11/08/23 14:33 Bronch Right Middle Lobe Gram Stain - Final
11/08/23 14:34 Bronch Right Middle Lobe Respiratory Virus Culture - Preliminary
11/07/23 17:56 Blood/Venous Blood Culture - Preliminary
No Growth in 48 hours- Final report to follow
11/07/23 00:43 Sputum Respiratory Culture - Final
Usual Respiratory Cassandra
11/07/23 00:43 Sputum Gram Stain - Final
11/07/23 00:43 Sputum Acid Fast Bacilli Smear - Preliminary
11/07/23 00:43 Sputum Acid Fast Bacilli Culture - Preliminary
11/07/23 17:56 Urine Legionella Urinary Antigen - Final
Negative for Legionella pneumophila Serogroup 1 antigen.
A negative result does not rule out the possiblity of
Legionella infection due to other serogroups or species of
Legionella. Clinical correlation is recommended.
11/07/23 17:56 Urine Streptococcus pneumoniae Antigen (M - Final
Negative for Streptococcus pneumoniae antigen.
A negative result does not exclude infection with
Streptococcus pneumoniae. Clinical correlation is
recommended.
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
-CTA chest: severe peripheral endobronchial infection throughout upper lobes with extensive peripheral tree-in-bud endobronchial opacity/severe varicoid bronchiectasis cicatricial atelectasis in the right middle lobe which is nearly completely
collapsed/ inferior Segment of the lingula
-s/p bronch 11/08/23: Exudate was found in the superior lingular segment of the left upper lobe (B4). Notable, mucopurulent, thick secretions were found in the right middle lobe. Blood was present in the bronchus intermedius. The bleeding site was
not identified. Bronchoalveolar lavage was performed. Therapeutic suctioning was performed.
-Culture data above. Sputum culture usual respiratory cassandra. Urine strep and Legionella antigens negative. Blood culture no growth to date. Follow bronch cultures/cytology.
-was on Ceftriaxone/azithromycin (patient does not tolerate doxycycline), d/c on 1 further day of azithro and 3 further days Ceftin
-saturating well on RA
-mild leukocytosis, afebrile
-Pulmonology following
Other problems:
Obesity due to excess calories
Recent poison edwin rash, resolved
Former smoker
FULL/heparin
Total time spent on d/c = 31 min. This included today's physical exam, progress note, review of laboratory and diagnostic data, preparation of discharge documents and prescriptions, and discussions about the pt's hospital course and discharge plan
with the patient and other medical care manager involved in the patient's care.
Anticipated Discharge: Today
Subjective/Interval History
-
Date of Service: November 10, 2023
Denies chest pain or shortness of breath.
Objective Data
-
Vital Signs:
Vital Signs
Temp Pulse Resp BP Pulse Ox
98.1 F 66 18 109/62 95
11/10/23 07:02 11/10/23 07:02 11/10/23 07:02 11/10/23 07:02 11/10/23 07:02
I&O
11/09/23 11/10/23 11/11/23
06:59 06:59 06:59
Intake Total 360 / 360 960 / 960
Balance 360 / 360 960 / 960
[2023-11-10 11:00] VITALS: BP 115/65
--- NOTE | 2023-11-10 11:11 | CM ---
CM following re: discharge planning.
Reviewed pt's chart, met with pt.
Discharge order is noted. Pt is aware, expressed her agreement with discharge and she stated her spouse will transport her home.
PT evaluations noted - pt has no skilled needs.
D/C plan: home with no needs. Spouse to transport.
[2023-11-10] MEDS: CEFTIN 500 MG PO (11:40)
--- NOTE | 2023-11-10 11:55 | PTCARENOTE ---
Pt DC'd to home. Pt given DC instructions and verbalized understanding.
--- NOTE | 2023-11-19 16:05 | W.DCSUMMARY ---
Discharge Summary
Discharge Data
Date of Admission: 11/06/23
Date of Discharge: 11/10/23
-
Pending Results: No
Hospital Course
Primary diagnoses:
Severe endobronchial infection/bronchiectasis and likely atypical mycobacterial infection
Secondary diagnoses:
Obesity due to excess calories
Former smoker
Consultants:
Pulmonary
Imaging:
CTA chest: severe peripheral endobronchial infection throughout upper lobes with extensive peripheral tree-in-bud endobronchial opacity/severe varicoid bronchiectasis cicatricial atelectasis in the right middle lobe which is nearly completely
collapsed/ inferior Segment of the lingula
Hospital course: 68-year-old female who presented with chief complaint of hemoptysis as outlined in H&P done on admission. CT angiogram of the chest above. Patient was afebrile and had no leukocytosis on admission. She was not hypoxemic. The
patient was placed on empiric ceftriaxone and doxycycline. She was seen in consultation by pulmonary. She underwent bronchoscopy on 11/08/23 with a report of exudate was found in the superior lingular segment of the left upper lobe (B4). Notable,
mucopurulent, thick secretions were found in the right middle lobe. Blood was present in the bronchus intermedius. The bleeding site was not identified. Bronchoalveolar lavage was performed. Therapeutic suctioning was performed. Sputum culture grew
usual respiratory cassandra. Urine strep and Legionella antigens negative. Blood culture were no growth to date. Bronchoscopy cultures grew DEIDRE after discharge. Cytology was negative for malignant cells. At the time of discharge pulmonary
recommended 1 further day of azithromycin and 3 further days of Ceftin. The patient was discharged in medically stable condition.
Discharge Plan
-
Patient Disposition: Home (Routine Discharge)
Discharge Diagnosis/Procedures: endobronchial infection
Condition: Good
Diet: No restrictions
Activity: As tolerated
Driving Restrictions: As prior to admission
Bathing Restrictions: None
Referrals:
Brody Vaz MD [Active] - in two to four weeks (Repeat CXR in 4-6 weeks)
Aida Thompson, [Family Provider] - in less than 1 week
Prescriptions:
New
azithromycin 250 mg Tablet
500 mg PO DAILY Qty: 1 0RF
cefuroxime axetil 500 mg tablet
500 mg PO BID Qty: 7 0RF
Continued
betamethasone, augmented 0.05 % cream
1 applic TOPICAL BID
Patient Comments:
11/06/2023: Apply to poison edwin/oak spots on arms & legs
glucosamine-chondroitin [Osteo Bi-Flex] 250-200 mg Tablet
1 tab PO DAILY
Hair,Skin and Nails
1 tab PO DAILY
Discontinued
prednisone 10 mg tablet
10 mg PO .TAPER
Patient Comments:
11/06/2023: Take 4 tabs x 2 days, take 3 tabs x 2 days, take 2 tabs x 2 days, take 1 tab x 2 days
Discharge Orders:
Discharge Patient (As Directed); Ordered 11/10/23
Ordered By: Dao Gayle
Discharge Date and Time
Discharge Date/Time: 11/10/23 11:52
Print Language: SAMI
== END 2023-11-10 11:52 | disposition home or self-care (01) | DRG 178 ==
LOC: 4 WEST ACU 20:49
PROVIDERS: Hospitalist; ADMITTING PHYSICIAN Hospitalist; ATTENDING PHYSICIAN Internal Medicine; EMERGENCY PHYSICIAN Emergency Medicine; FAMILY PHYSICIAN Family Medicine; OTHER PHYSICIAN Internal Medicine Critical Care Medicine
PROC: 0B9G8ZX Drainage of Left Upper Lung Lobe, Via Natural or Artificial Opening Endoscopic, Diagnostic (ICD-10-PCS; 2023-11-08)
PROC: 0B9D8ZX Drainage of Right Middle Lung Lobe, Via Natural or Artificial Opening Endoscopic, Diagnostic (ICD-10-PCS; 2023-11-08)
DX: A31.0 Pulmonary mycobacterial infection (principal); J47.0 Bronchiectasis with acute lower respiratory infection; R04.2 Hemoptysis; J98.11 Atelectasis; J18.1 Lobar pneumonia, unspecified organism; E66.09 Other obesity due to excess calories; L23.7 Allergic contact dermatitis due to plants, except food; Z96.651 Presence of right artificial knee joint; Z87.01 Personal history of pneumonia (recurrent); Z86.16 Personal history of COVID-19; Z88.1 Allergy status to other antibiotic agents; Z87.891 Personal history of nicotine dependence; Z88.5 Allergy status to narcotic agent; Z68.31 Body mass index [BMI] 31.0-31.9, adult
CPT/HCPCS: 88305; 71045; 71275; 80048; 80053; 83880; 84484; 85025; 85027; 85379; 85610; 85730; 87015; 87040; 87070; 87081; 87102; 87107; 87116; 87158; 87205; 87252; 87278; 87449; 87899; 88112; 89051; 93005; 94760; 96374; 97116; 97161; 99285; Q9967

== ENCOUNTER → 2023-11-27 11:50 | Outpatient (REF) | payer OTHER, SELFPAY | LOC: RCS 11:50 | PROVIDERS: ATTENDING PHYSICIAN Student in an Organized Health Care Education/Training Program; FAMILY PHYSICIAN Family Medicine | DX: B44.9 Aspergillosis, unspecified (principal) | CPT/HCPCS: 93005 ==

== ENCOUNTER → 2023-12-17 09:03 | Outpatient (REF) | payer OTHER, SELFPAY | LOC: RAD 09:03 | PROVIDERS: ATTENDING PHYSICIAN Internal Medicine Critical Care Medicine | DX: B44.9 Aspergillosis, unspecified (principal); J47.0 Bronchiectasis with acute lower respiratory infection | CPT/HCPCS: 71046 ==

== ENCOUNTER → 2024-01-08 07:15 | Outpatient (REF) | payer OTHER, SELFPAY | LOC: RAD 07:15 | PROVIDERS: ATTENDING PHYSICIAN Student in an Organized Health Care Education/Training Program; FAMILY PHYSICIAN Family Medicine | DX: B44.9 Aspergillosis, unspecified (principal); A31.0 Pulmonary mycobacterial infection | CPT/HCPCS: 71250 ==

== ENCOUNTER → 2024-09-28 12:50 | Outpatient (REF) | payer OTHER, SELFPAY | LOC: RAD 12:50 | PROVIDERS: ATTENDING PHYSICIAN Student in an Organized Health Care Education/Training Program; FAMILY PHYSICIAN Family Medicine | DX: B44.9 Aspergillosis, unspecified (principal); J47.0 Bronchiectasis with acute lower respiratory infection | CPT/HCPCS: 71046 ==

== ENCOUNTER → 2025-05-11 07:49 | Outpatient (REF) | payer OTHER, SELFPAY | LOC: HWRAD 07:49 | PROVIDERS: ATTENDING PHYSICIAN Internal Medicine Critical Care Medicine; FAMILY PHYSICIAN Family Medicine | DX: A31.0 Pulmonary mycobacterial infection (principal); B44.9 Aspergillosis, unspecified; J47.0 Bronchiectasis with acute lower respiratory infection | CPT/HCPCS: 71250 ==